=== PATIENT | male | born 1970 | race Caucasian/White ===

== ENCOUNTER 2021-08-17 14:53 | Emergency (ER) | payer BC ==
[~2021-08-17] VITALS: Ht 175.3 cm; Wt 90.7 kg
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
--- NOTE | 2021-08-17 16:05 | NUR ---
TO ER BED 6,NO APPARENT CHANGE IN CONDITION
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
[2021-08-17] MEDS ORDERED: TDAP [DIPH/PERTUSSIS/TET] 0.5 ML VIAL IM ONE ×2 (16:57→17:00)
[2021-08-17] MEDS ORDERED: HYDROCODONE/APAP 10/325MG TABLET ONE (16:57)
[2021-08-17] MEDS ORDERED: HYDROCODONE/APAP 10/325MG TABLET PO ONE (17:00)
--- NOTE | 2021-08-17 17:01 | NUR ---
PATIENT WAS WHEELED TO CT DEPARTMENT.
--- NOTE | 2021-08-17 18:50 | NUR ---
PATIENT SEEN BY DR CALHOUN AND HE WILL DISCHARGE PATIENT.
[2021-08-17] MEDS ORDERED: IBUP-1955 PO (19:10)
[2021-08-17] MEDS ORDERED: HYDR-3972 PO (19:10)
--- NOTE | 2021-08-17 19:21 | NUR ---
Patient discharged to home in stable condition. Written and verbal after care instructions given. Patient verbalizes understanding of instruction.
[2021-08-17 19:22] VITALS: BP 135/89
== END 2021-08-17 19:22 | disposition home or self-care (01) ==
LOC: ER 14:55
DX: S16.1XXA Strain of muscle, fascia and tendon at neck level, initial encounter (principal); S40.022A Contusion of left upper arm, initial encounter; S80.812A Abrasion, left lower leg, initial encounter; S80.811A Abrasion, right lower leg, initial encounter; S09.90XA Unspecified injury of head, initial encounter; J45.909 Unspecified asthma, uncomplicated; S29.9XXA Unspecified injury of thorax, initial encounter; V32.5XXA Driver of three-wheeled motor vehicle injured in collision with two- or three-wheeled motor vehicle in traffic accident, initial encounter; Y93.89 Activity, other specified; Y92.413 State road as the place of occurrence of the external cause; Y99.8 Other external cause status
CPT/HCPCS: 70450-TC; 71100-TC; 72125-TC; 73090-TC; 90715